=== PATIENT | male | born 1970 | race Caucasian/White ===

== ENCOUNTER → 2024-01-13 | Outpatient (CLI) | payer OTHER ==
[~2024-01-13] MED LIST: Lidocaine PF 1% (10 MG/ML) 5 ML VIAL ONE
== END ==
LOC: MHCPAIN 09:36
DX: G57.12 Meralgia paresthetica, left lower limb (principal)
CPT/HCPCS: J0665; J1040

== ENCOUNTER 2024-01-16 12:08 | Outpatient (RCR) | payer OTHER | END 2024-01-19 | LOC: COL.PUL | DX: S22.5XXA Flail chest, initial encounter for closed fracture (principal); X58.XXXA Exposure to other specified factors, initial encounter | CPT/HCPCS: G0237; G0238; G0239 ==

== ENCOUNTER → 2024-02-11 | Outpatient (CLI) | payer OTHER | LOC: MHCPAIN 07:58 | DX: G57.12 Meralgia paresthetica, left lower limb (principal); E11.9 Type 2 diabetes mellitus without complications; Z79.84 Long term (current) use of oral hypoglycemic drugs | CPT/HCPCS: G0463 ==